=== PATIENT | male | born 1960 ===

== ENCOUNTER 2018-03-04 18:34 | Emergency (ER) | payer SELFPAY ==
[2018-03-04 18:50] VITALS: RESP 18; TEMP 98.5
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
[2018-03-04 20:48] VITALS: BP 126/85; PULSE 90
[2018-03-04 20:58] VITALS: O2SAT 95
== END 2018-03-04 20:50 ==
LOC: C.ER 18:34
DX: F10.129 Alcohol abuse with intoxication, unspecified (principal); Z04.1 Encounter for examination and observation following transport accident